=== PATIENT | female | born 1950 ===

== ENCOUNTER 2017-05-03 09:16 | Emergency (ER) | payer MEDICARE, OTHER ==
[2017-05-03 09:45] VITALS: BMI 32.5
[2017-05-03 09:47] VITALS: BP 159/77; PULSE 67; RESP 16; TEMP 98; O2SAT 98
[2017-05-03] MEDS ORDERED: Albuterol-Ipratrop 3 mg / 0.5 (3 ml) UD INH STA (10:22)
[2017-05-03] MEDS ORDERED: Albuterol-Ipratrop 3 mg / 0.5 (3 ml) UD ONE (10:53)
--- NOTE | 2017-05-03 10:53 | ED PDOC ---
HPI: General Adult Time Seen by Provider: 05/03/17 10:19 Chief Complaint (Nursing): Headache Chief Complaint (Provider): headache, epistaxis, cough History Per: Patient, Private Secretary (Marielena #[id number]) History/Exam Limitations: no limitations Onset/Duration Of Symptoms: Days (1) Current Symptoms Are (Timing): Better Severity: Moderate Additional Complaint(s): 66yo female presents c/o cough followed by episode of self-resolving epistaxis yesterday, now today has headache. Denies change vision, SOB, weakness or vomiting. Past Medical History Reviewed: Historical Data Vital Signs: Last Vital Signs Temp 98 F 05/03/17 09:46 Pulse 67 05/03/17 09:46 Resp 16 05/03/17 09:46 BP 159/77 H 05/03/17 09:46 Pulse Ox 98 05/03/17 10:54 - Medical History PMH: Asthma, Diabetes, HTN, Hypercholesterolemia, Migraine Denies: Chronic Kidney Disease - Surgical History Surgical History: Endoscopy - Family History Family History: States: CAD - Social History Current smoker - smoking cessation education provided: No - Home Medications Home Medications: Ambulatory Orders Medication Instructions Recorded GlipiZIDE [Glucotrol] 5 mg PO DAILY 09/06/14 Propranolol [Inderal] 20 mg PO BID 09/06/14 Simvastatin 10 mg PO HS 09/06/15 Guaifenesin [Mucinex] 600 mg PO BID PRN #12 tab.er.12h 05/03/17 Ibuprofen [Motrin Tab] 600 mg PO Q6 PRN #15 tab 05/03/17 Sodium Chloride [Saline Nasal Mist] 1 spr NS TID #1 bot 05/03/17 - Allergies Allergies/Adverse Reactions: Allergies Allergy/AdvReac Type Severity Reaction Status Date / Time No Known Allergies Allergy Verified 05/03/17 09:47 Review of Systems Constitutional: Negative for: Fever, Chills ENT: Positive for: Throat Pain, Other (epistaxis). Negative for: Ear Pain Cardiovascular: Negative for: Chest Pain, Palpitations Respiratory: Positive for: Cough, Wheezing. Negative for: SOB with Exertion Gastrointestinal: Negative for: Nausea, Vomiting, Abdominal Pain Genitourinary Female: Negative for: Dysuria, Frequency Musculoskeletal: Negative for: Neck Pain, Arm Pain, Back Pain, Leg Pain Skin: Negative for: Rash, Jaundice, Bruising Neurological: Positive for: Headache. Negative for: Weakness, Numbness, Dizziness Physical Exam - Reviewed Nursing Documentation Reviewed: Yes Vital Signs Reviewed: Yes - Physical Exam Appears: Positive for: Well, Non-toxic, No Acute Distress Head Exam: Positive for: ATRAUMATIC, NORMAL INSPECTION, NORMOCEPHALIC Skin: Positive for: Normal Color, Warm, DRY Eye Exam: Positive for: EOMI, Normal appearance, PERRL ENT: Positive for: Normal ENT Inspection, Other (no blood visualized in oropharynx or nares/turbinates). Negative for: Nasal Congestion Neck: Positive for: Normal, Painless ROM Cardiovascular/Chest: Positive for: Regular Rate, Rhythm Respiratory: Positive for: Normal Breath Sounds. Negative for: Wheezing, Respiratory Distress Gastrointestinal/Abdominal: Positive for: Normal Exam, Bowel Sounds, Soft Back: Positive for: Normal Inspection Extremity: Positive for: Normal ROM Neurologic/Psych: Positive for: Alert, Oriented, Cerebellar Tests (intact). Negative for: Motor/Sensory Deficits - Laboratory Results Result Diagrams: 05/03/17 11:15 05/03/17 11:15 - ECG O2 Sat by Pulse Oximetry: 98 Medical Decision Making Medical Decision Making: workup for SOB/ cough w hemoptysis and now headache initiated. CXR negative per radiologist CT brain negative per radiologist labs reviewed DDimer neg Hgb and Plt normal Chem unremarkable No evidence further bleeding while in ED, refer to ENT for scope and further testing. Symptoms improved on re-evaluation prior to DC. Disposition - Clinical Impression Clinical Impression: Epistaxis, Headache, Cough - Patient ED Disposition Is Patient to be Admitted: No Counseled Patient/Family Regarding: Studies Performed, Diagnosis, Need For Followup - Disposition Referrals: Tej Hardwick MD [Staff Provider] - Disposition: Routine/Home Disposition Time: 13:01 Condition: STABLE Additional Instructions: See your doctor in 2-3 days for re-evaluation. Return to ER for any worse or new symptoms. Prescriptions: Guaifenesin [Mucinex] 600 mg PO BID PRN #12 tab.er.12h PRN Reason: Cough Ibuprofen [Motrin Tab] 600 mg PO Q6 PRN #15 tab PRN Reason: Pain, Moderate (4-7) Sodium Chloride [Saline Nasal Mist] 1 spr NS TID #1 bot Instructions: Nosebleed (ED), Acute Headache (ED), Acute Cough (ED) Forms: [employer] (Slovak)
[2017-05-03 11:27] LABS: BASO % 0.4 % (0.0-2.0); EOS # 0.1 K/uL (0.0-0.7); EOS % 1.4 % (0.0-4.0); HEMOGLOBIN 13.3 g/dL (12.0-16.0); LYMPH # 2.3 K/uL (1.0-4.3); LYMPH % 29.6 % (20.0-40.0); MEAN CELL VOLUME 87.2 fl (81.0-99.0); MEAN CORPUSCULAR HEMOGLOBIN 28.4 pg (27.0-31.0); MEAN CORPUSCULAR HGB CONC 32.5 g/dL (33.0-37.0); MEAN PLATELET VOLUME 10.2 fl (7.2-11.7); MONO # 0.6 K/uL (0.0-0.8); MONO % 7.5 % (0.0-10.0); NEUT # 4.8 K/uL (1.8-7.0); NEUT % 61.1 % (50.0-75.0); NRBC % 0.1 % (0.0-0.0); RBC 4.7 Mil/uL (3.80-5.20); RED CELL DISTRIBUTION WIDTH 13.7 % (11.5-14.5); WHITE BLOOD COUNT 7.9 K/uL (4.8-10.8)
--- NOTE | 2017-05-03 11:31 | CT ---
PROCEDURE: CT HEAD WITHOUT CONTRAST. HISTORY: r/o ICH COMPARISON: CT head dated 12/18/2014. TECHNIQUE: Axial computed tomography images were obtained through the head/brain without intravenous contrast. Radiation dose: Total exam DLP = 844.9 mGy-cm. This CT exam was performed using one or more of the following dose reduction techniques: Automated exposure control, adjustment of the mA and/or kV according to patient size, and/or use of iterative reconstruction technique. FINDINGS: HEMORRHAGE: No intracranial hemorrhage. BRAIN: No mass effect or edema. No atrophy or chronic microvascular ischemic changes. VENTRICLES: Unremarkable. No hydrocephalus. CALVARIUM: Unremarkable. PARANASAL SINUSES: Unremarkable as visualized. No significant inflammatory changes. MASTOID AIR CELLS: Unremarkable as visualized. No inflammatory changes. OTHER FINDINGS: None. IMPRESSION: No acute intracranial pathology.
[2017-05-03 11:49] LABS: ALB/GLOB RATIO 1.3 (1.0-2.1); ALBUMIN 4.3 g/dL (3.5-5.0); ALT/SGPT 36 U/L (9-52); AST/SGOT 25 U/L (14-36); BLOOD UREA NITROGEN 16 mg/dl (7-17); CALCIUM 9.9 mg/dL (8.4-10.2); GFR AFRICAN-AMERICAN > 60; GFR NON-AFRICAN AMERICAN > 60
--- NOTE | 2017-05-03 12:30 | CARD ---
APPROVED REPORT EKG Measurement Heart [id number] <Conclusion> Normal sinus rhythm Normal ECG
--- NOTE | 2017-05-03 13:11 | RAD ---
HISTORY: hemoptysis COMPARISON: Chest radiograph dated 09/06/2014. TECHNIQUE: Chest PA and lateral FINDINGS: LUNGS: No active pulmonary disease. PLEURA: No significant pleural effusion identified. No pneumothorax apparent. CARDIOVASCULAR: Atherosclerotic aortic calcifications. Cardiomediastinal silhouette within normal limits. OSSEOUS STRUCTURES: Unchanged. VISUALIZED UPPER ABDOMEN: Normal. OTHER FINDINGS: None. IMPRESSION: No active disease.
== END 2017-05-03 13:58 | disposition home or self-care (01) ==
LOC: H.ER 09:16
DX: R51 Headache (principal); R04.0 Epistaxis; R05 Cough; E11.9 Type 2 diabetes mellitus without complications; Z79.84 Long term (current) use of oral hypoglycemic drugs; E78.00 Pure hypercholesterolemia, unspecified; I10 Essential (primary) hypertension
CPT/HCPCS: 70450; 71046; 80053; 83880; 85025; 85378; 87804; 93005; 94150; 94640; 99285; J1885